=== PATIENT | male | born 1980 | race Two or more races ===

== ENCOUNTER 2016-10-14 18:55 | Emergency (ER) | payer OTHER ==
[~2016-10-14] VITALS: Ht 185.4 cm; Wt 129.6 kg
[2016-10-14] MEDS ORDERED: OMEP20CA3 PO (19:09)
[2016-10-14] MEDS ORDERED: HYDR-3713 PO (19:09)
[2016-10-14] MEDS ORDERED: ATEN50TA2 PO (19:09)
[2016-10-14] MEDS ORDERED: FLOM5CAP PO (19:09)
[2016-10-14] MEDS ORDERED: HYDR25TA6 PO (19:09)
[2016-10-14 19:38] LABS: BASO % 0.5 % (0.0-1.0); EOS # 0.2 K/mm3 (0.0-0.50); EOS % 2.1 % (0.0-3.0); LARGE UNSTAINED CELL # 0.2 K/mm3 (0.0-0.4); LARGE UNSTAINED CELL % 1.7 % (0.0-4.0); LYMPH # 2.9 K/mm3 (1.5-4.5); MEAN CORPUSCULAR HEMOGLOBIN 28.5 pg (27.0-33.0); MEAN CORPUSCULAR HGB CONC 35.1 g/dl (32.0-36.5); MEAN CORPUSCULAR VOLUME 81.3 fl (80.0-96.0); MONO # 0.5 K/mm3 (0.0-0.8); MONO % 5.6 % (0.0-5.0); NEUTROPHILS # 5.8 K/mm3 (1.8-7.7); NEUTROPHILS % 61.2 % (36.0-66.0); PLATELET COUNT, AUTOMATED 164 k/mm3 (150-450); WHITE BLOOD COUNT 9.5 K/mm3 (4.0-10.0)
[2016-10-14] MEDS ORDERED: ONDANSETRON 4MG/2ML VIAL (J2405) IV ONE (19:45)
[2016-10-14] MEDS ORDERED: NS 1,000 ML IV ONE (19:45)
[2016-10-14] MEDS ORDERED: MORPHINE 4 MG/ML 1ML SYRINGE IV ONE ×2 (19:45→22:00)
[2016-10-14 20:06] LABS: ALBUMIN 3.9 GM/DL (3.2-5.2); ALBUMIN/GLOBULIN RATIO 1.08 (1.00-1.93); ALKALINE PHOSPHATASE 138 U/L (45-117); ALT/SGPT 40 U/L (12-78); ANION GAP 5 MEQ/L (8-16); AST/SGOT 24 U/L (15-37); BILIRUBIN,DIRECT 0.1 MG/DL (0.0-0.2); BILIRUBIN,TOTAL 0.5 MG/DL (0.2-1.0); BLOOD UREA NITROGEN 20 MG/DL (7-18); CALCIUM LEVEL 8.9 MG/DL (8.5-10.1); CARBON DIOXIDE LEVEL 30 MEQ/L (21-32); CHLORIDE LEVEL 106 MEQ/L (98-107); GLOMERULAR FILTRATION RATE > 60.0 (>60); GLUCOSE, FASTING 121 MG/DL (70-105); POTASSIUM SERUM 3.3 MEQ/L (3.5-5.1); SODIUM LEVEL 141 MEQ/L (136-145); TOTAL PROTEIN 7.5 GM/DL (6.4-8.2)
[2016-10-14] MEDS ORDERED: NS 1,000 ML IV SCH (20:12)
[2016-10-14] MEDS ORDERED: KETOROLAC 30 MG/ML VIAL (J1885) IV ONE (20:15)
[2016-10-14] MEDS ORDERED: POTASSIUM CHLORIDE 10 MEQ SR TABLET PO ONE (20:15)
--- NOTE | 2016-10-14 21:50 | REPUSA ---
CT of the abdomen and pelvis without contrast Clinical statement: Pain. Technique: Multiple axial CT images were obtained from the base of the lungs to the floor of the pelv is utilizing 5 mm axial slices without administration of contrast. Coronal and sagittal reconstructio ns were also obtained. No comparison is available. Findings: Chest: The visualized lung bases are clear. Abdomen: The kidneys are normal in size bilaterally. There is mild left-sided hydronephrosis and hydr oureter. No obstructing stone is seen within the ureter, although a 2 mm stone is seen within the uri nary bladder. The right renal collecting system is unremarkable. The liver, spleen, pancreas, gallbla dder and adrenal glands are unremarkable. The aorta demonstrates normal caliber and contour. There is no abdominal lymphadenopathy or ascites. Pelvis: The bowel is unremarkable, with no obstructive or inflammatory changes. Mild sigmoid divertic ulosis is noted. The appendix is normal. The urinary bladder is within normal limits. There is no pel reynold lymphadenopathy or ascites. The other pelvic structures appear unremarkable. Bones: There are no suspicious osseous abnormalities seen. Impression: 1. Mild left-sided hydronephrosis and hydroureter. Although no obstructing stone is seen within the u reter at this time, there is a 2 mm stone within the urinary bladder lumen, which could represent a r ecently passed stone. Follow-up is recommended as clinically indicated. 2. No obstructive or inflammatory bowel changes. Mild sigmoid diverticulosis.
[2016-10-14 23:00] VITALS: BP 110/66
== END 2016-10-14 23:48 | disposition home or self-care (01) ==
LOC: M ED 18:55
DX: N20.0 Calculus of kidney (principal); N13.30 Unspecified hydronephrosis; I10 Essential (primary) hypertension; Z79.899 Other long term (current) drug therapy
CPT/HCPCS: 36415; 74176; 80048; 80076; 81001; 83690; 85025; 87086; 93041; 96361; 96374; 96375; 96376; 99285; J1885; J2405